=== PATIENT | male | born 1960 | race Caucasian/White ===

== ENCOUNTER → 2017-01-28 | Outpatient (CLI) | payer OTHER ==
[~2017-01-28] MED LIST: CEFDINIR300 MG PO; ELIQUIS2.5 MG PO; LISINOPRIL-HCT1 EAC2 PO; LISINOPRIL20 MG PO; NORCO 7.5-3251 EACH PO; PERCOCET 10-321 EACH PO
[2017-01-28 08:34] LABS: HEMOGLOBIN 14.9 gm/dl (14.0-17.5); RED BLOOD COUNT 4.44 M/UL (4.20-5.50); WHITE BLOOD COUNT 9.2 K/UL (4.5-11.0)
[2017-01-28 08:46] LABS: BUN/CREATININE RATIO 16 (0-10)
== END ==
LOC: OPSV2 07:54
PROVIDERS: Orthopaedic Surgery
DX: Z01.810 Encounter for preprocedural cardiovascular examination (principal); Z01.812 Encounter for preprocedural laboratory examination; M16.12 Unilateral primary osteoarthritis, left hip; I10 Essential (primary) hypertension
CPT/HCPCS: 36415; 80048; 81001; 83036; 85025; 87081; 93005

== ENCOUNTER → 2017-02-10 | Outpatient (CLI) | payer OTHER | LOC: LAB 06:33 | DX: Z01.818 Encounter for other preprocedural examination (principal); I10 Essential (primary) hypertension; M19.90 Unspecified osteoarthritis, unspecified site | CPT/HCPCS: 36415; 80051; 82565; 84520; 86850; 86900; 86901 ==

== ENCOUNTER 2017-02-11 06:00 | Inpatient (IN) | payer OTHER ==
[~2017-02-11] VITALS: Ht 182.9 cm; Wt 131.1 kg
[~2017-02-11 06:00] MED LIST changes: -CEFDINIR300 MG PO; -ELIQUIS2.5 MG PO; -LISINOPRIL20 MG PO; -NORCO 7.5-3251 EACH PO; -PERCOCET 10-321 EACH PO
[2017-02-12 06:10] LABS: HEMOGLOBIN 11.4 gm/dl (14.0-17.5); RED BLOOD COUNT 3.37 M/UL (4.20-5.50); WHITE BLOOD COUNT 14.3 K/UL (4.5-11.0)
[2017-02-12 06:25] LABS: BUN/CREATININE RATIO 17 (0-10)
[2017-02-13 05:40] LABS: HEMOGLOBIN 10.2 gm/dl (14.0-17.5); RED BLOOD COUNT 3.04 M/UL (4.20-5.50)
[2017-02-13 06:01] LABS: BUN/CREATININE RATIO 13 (0-10)
[2017-02-14 05:30] LABS: HEMOGLOBIN 9.6 gm/dl (14.0-17.5); RED BLOOD COUNT 2.87 M/UL (4.20-5.50)
[2017-02-14 05:47] LABS: BUN/CREATININE RATIO 16 (0-10)
[2017-02-14] MEDS ORDERED: ELIQUIS2.5 MG PO (11:21)
[2017-02-14] MEDS ORDERED: NORCO 7.5-3251 EACH PO (11:22)
[2017-02-14] MEDS ORDERED: CEFDINIR300 MG PO (17:39)
[2017-02-14] MEDS ORDERED: LISINOPRIL20 MG PO (17:54)
[2017-06-04] MEDS ORDERED: PERCOCET 10-321 EACH PO (18:09)
[2017-06-04] MEDS ORDERED: ELIQUIS2.5 MG PO (18:10)
== END 2017-02-14 18:21 | disposition home health service (06) | DRG 470 ==
LOC: ZOBSOF 06:00 → M/S 20:07
PROVIDERS: ADMIT Orthopaedic Surgery
PROC: 30233H0 Transfusion of Autologous Whole Blood into Peripheral Vein, Percutaneous Approach (ICD-10-PCS; 2017-02-11)
PROC: 3E0T3CZ (ICD-10-PCS; 2017-02-11)
PROC: 0SRB04A Replacement of Left Hip Joint with Ceramic on Polyethylene Synthetic Substitute, Uncemented, Open Approach (ICD-10-PCS; principal; 2017-02-11 11:30)
DX: M16.0 Bilateral primary osteoarthritis of hip (principal); D62 Acute posthemorrhagic anemia; M84.452A Pathological fracture, left femur, initial encounter for fracture; I10 Essential (primary) hypertension; E87.6 Hypokalemia; E66.9 Obesity, unspecified; Z68.39 Body mass index [BMI] 39.0-39.9, adult; I08.1 Rheumatic disorders of both mitral and tricuspid valves; J40 Bronchitis, not specified as acute or chronic; R50.9 Fever, unspecified; D72.829 Elevated white blood cell count, unspecified; G89.29 Other chronic pain; F17.200 Nicotine dependence, unspecified, uncomplicated; F40.240 Claustrophobia; Z87.898 Personal history of other specified conditions; Z79.899 Other long term (current) drug therapy; Z88.8 Allergy status to other drugs, medicaments and biological substances; Z98.42 Cataract extraction status, left eye; Z80.3 Family history of malignant neoplasm of breast; Z80.9 Family history of malignant neoplasm, unspecified; Z82.49 Family history of ischemic heart disease and other diseases of the circulatory system; Z82.61 Family history of arthritis
CPT/HCPCS: 36415; 73501; 73502; 76000; 80048; 85025; 94640; 94664; 97110; 97116; 97530; 97535; C1776; J0690; J1644; J2250; J2710; J2795; J3010; J7030; J7050; J7120